=== PATIENT | male | born 1990 | race Caucasian/White ===

== ENCOUNTER 2023-06-10 11:03 | Emergency (ER) | payer SELFPAY ==
[2023-06-10 13:14] LABS: CORONAVIRUS COVID-19 NAA NEGATIVE (NEGATIVE); INFLUENZA A NAA POSITIVE (NEGATIVE); INFLUENZA B NAA NEGATIVE (NEGATIVE)
== END 2023-06-10 13:47 | disposition home or self-care (01) ==
LOC: MW.ED 11:03
DX: J01.90 Acute sinusitis, unspecified (principal); J10.1 Influenza due to other identified influenza virus with other respiratory manifestations
CPT/HCPCS: 0240U; 99284; 99283

== ENCOUNTER 2023-08-11 11:10 | Emergency (ER) | payer OTHER ==
[2023-08-11] MEDS: Ketorolac 30 MG/ML SDV IM ONE (12:20)
== END 2023-08-11 14:01 | disposition home or self-care (01) ==
LOC: MW.ED 11:10
DX: M24.832 Other specific joint derangements of left wrist, not elsewhere classified (principal); F17.210 Nicotine dependence, cigarettes, uncomplicated; Z79.899 Other long term (current) drug therapy; Z75.8 Other problems related to medical facilities and other health care
CPT/HCPCS: 73090; 73110; 96372; 99283; J1885

== ENCOUNTER 2023-12-06 13:00 | Emergency (ER) | payer OTHER ==
[~2023-12-06 13:00] MED LIST: Iopamidol 755 MG/ML 500 ML Multipack Bottle IVPUSH STA
[2023-12-07 09:10] LABS: BASOPHILS ABSOLUTE AUTO 0.08 K/uL (0.00-0.20); BASOPHILS PERCENT AUTO 0.8 % (0.0-1.0); EOSINOPHILS ABSOLUTE AUTO 0.82 K/uL (0.00-0.45); EOSINOPHILS PERCENT AUTO 8.1 % (0.0-6.0); HEMATOCRIT 49.3 % (42.0-52.0); HEMOGLOBIN 16.9 g/dL (14.0-18.0); IMMATURE GRAN ABSOLUTE AUTO 0.09 K/uL (0.00-0.05); IMMATURE GRAN PERCENT AUTO 0.9 % (0.0-0.4); LYMPHOCYTES ABSOLUTE AUTO 1.93 K/uL (1.00-4.80); LYMPHOCYTES PERCENT AUTO 19.1 % (24.0-44.0); MEAN CORPUSCULAR HEMOGLOBIN 31.8 pg (28.0-32.0); MEAN CORPUSCULAR HGB CONC 34.3 g/dL (32.0-36.0); MEAN CORPUSCULAR VOLUME 92.8 fL (83.0-99.0); MEAN PLATELET VOLUME 8.5 fL (9.4-12.4); MONOCYTES ABSOLUTE AUTO 1.24 K/uL (0.00-0.80); MONOCYTES PERCENT AUTO 12.3 % (0.0-8.0); NEUTROPHILS ABSOLUTE AUTO 5.93 K/uL (1.80-7.70); NEUTROPHILS PERCENT AUTO 58.8 % (41.0-71.0); PLATELET COUNT,PLT 299 K/uL (150-400); RED BLOOD CELL COUNT 5.31 M/uL (4.52-5.90); WHITE BLOOD CELL COUNT,WBC 10.09 K/uL (3.9-11.3)
[2023-12-07 13:04] LABS: ALANINE AMINOTRANSFERASE,ALT 49 IU/L (14-63); ALBUMIN 3.5 g/dL (3.4-5.0); ALKALINE PHOSPHATASE 97 U/L (46-116); ASPARTATE AMNIOTRANSFERASE,AST 37 IU/L (15-37); BILIRUBIN TOTAL 0.4 mg/dL (0.2-1.0); BLOOD UREA NITROGEN,BUN 13 mg/dL (7.0-18.0); CHLORIDE,CL 101 mmol/L (98-107); GLUCOSE RANDOM 74 mg/dL (74-106); LIPASE 89 U/L (16-77); POTASSIUM,K 4.4 mmol/L (3.5-5.1); SODIUM,NA 138 mmol/L (136-148)
[2023-12-07 13:23] LABS: ESTIMATED GFR 103 mL/min (>60)
[2023-12-07 14:05] LABS: APPEARANCE,URINE SLT CLOUDY; BILIRUBIN,URINE NEGATIVE (NEGATIVE); COLOR,URINE YELLOW; GLUCOSE,URINE NEGATIVE (NEGATIVE); KETONES,URINE NEGATIVE (NEGATIVE); LEUKOCYTE ESTERASE,URINE NEGATIVE (NEGATIVE); NITRITE,URINE NEGATIVE (NEGATIVE); OCCULT BLOOD,URINE NEGATIVE (NEGATIVE); PROTEIN,URINE NEGATIVE (NEGATIVE); UROBILINOGEN,URINE 0.2 EU/dL (<2.0)
[2023-12-07 14:49] LABS: EPITHELIAL CELLS,URINE RARE (NONE-FEW); RBC,URINE NONE SEEN (0-2/HPF); WBC,URINE 0-3 (0-5/HPF)
[2023-12-07 14:50] LABS: AMORPHOUS SEDIMENT,URINE LIGHT (NEGATIVE); BACTERIA,URINE RARE (NEGATIVE); MUCUS,URINE LIGHT (NONE-MOD)
== END 2023-12-06 17:05 | disposition home or self-care (01) ==
LOC: MW.ED 13:16
DX: R31.9 Hematuria, unspecified (principal); R10.31 Right lower quadrant pain
CPT/HCPCS: 36415; 74177; 74177-26; 80053; 81001; 83690; 85025; 99283; 99284